=== PATIENT | male | born 1950 ===

== ENCOUNTER 2018-09-03 09:17 | Emergency (ER) | payer MEDICARE ==
[2018-09-03] MEDS ORDERED: Albuterol-Ipratrop 3 mg / 0.5 (3 ml) UD INH STA (09:51)
--- NOTE | 2018-09-03 11:10 | ED PDOC ---
History of Present Illness History of Present Illness: 67 year old male with a history of diabetes presents to the ED with a productive cough, tactile fever and sore throat since last night. Patient also complains of epigastric pain since he began coughing. He did not measure his temperature but states that he feels warm. Denies vomiting, any sick contacts, and chest pain. PMD: Dr. Andrei Carter HPI: Influenza Time Seen by Provider: 09/03/18 09:44 Chief Complaint: Cough, Cold, Congestion Chief Complaint (Provider): Cough, Cold, Congestion History Per: Patient Exam Limitations: no limitations Have you had recent travel within the past 21 days to any of: No Onset/Duration Of Symptoms: Days (x 2) Symptoms include: fever (feels warm), sore throat, cough Risk factors for flu complications: Yes: adult > 65 years Past Medical History Reviewed: Historical Data, Nursing Documentation, Vital Signs Vital Signs: Last Vital Signs Temp 97 F L 09/03/18 09:27 Pulse 58 L 09/03/18 09:27 Resp 20 09/03/18 09:27 BP 139/73 09/03/18 09:27 Pulse Ox 98 09/03/18 09:27 - Medical History PMH: Diabetes - Surgical History Surgical History: No Surg Hx - Family History Family History: States: Unknown Family Hx - Home Medications Home Medications: Ambulatory Orders Medication Instructions Recorded Azithromycin [Z-Cleveland] 250 mg PO DAILY #6 tab 09/03/18 - Allergies Allergies/Adverse Reactions: Allergies Allergy/AdvReac Type Severity Reaction Status Date / Time No Known Allergies Allergy Verified 09/03/18 09:26 Review of Systems ROS Statement: Except As Marked, All Systems Reviewed And Found Negative Constitutional: Positive for: Fever (feels warm). Negative for: Chills, Other (sick contacts) ENT: Positive for: Throat Pain Cardiovascular: Negative for: Chest Pain, Palpitations Respiratory: Positive for: Cough, Sputum Gastrointestinal: Negative for: Vomiting Physical Exam - Reviewed Nursing Documentation Reviewed: Yes Vital Signs Reviewed: Yes - Physical Exam Appears: Positive for: Non-toxic, No Acute Distress Head Exam: Positive for: ATRAUMATIC, NORMAL INSPECTION, NORMOCEPHALIC Skin: Positive for: Normal Color, Warm, Dry. Negative for: Rash Eye Exam: Positive for: EOMI, Normal appearance, PERRL Neck: Positive for: Normal, Painless ROM, Supple Cardiovascular/Chest: Positive for: Regular Rate, Rhythm. Negative for: Murmur Respiratory: Positive for: Crackles (crackles bilateral lungs, worse on left side) Gastrointestinal/Abdominal: Positive for: Normal Exam, Soft. Negative for: Tenderness Extremity: Positive for: Normal ROM (x 4). Negative for: Deformity Neurologic/Psych: Positive for: Alert, Oriented (x 3). Negative for: Motor/Sens ory Deficits Medical Decision Making Medical Decision Makin:50 MDM: workup for upper respiratory infection Albuterol treatment for shortness of breath Labs sent; CXR ordered Reassess patient 1310 Labs WNL. CXR unremarkable. Flu negative. Will give Azithromycin and pt to follow up with PMD. Return parameters discussed. --- Scribe Attestation: Documented by Diane Campoverde acting as a scribe for Kaila Martinez MD Provider Scribe Attestation: All medical record entries made by the Scribe were at my direction and personal ly dictated by me. I have reviewed the chart and agree that the record accurately reflects my personal performance of the history, physical exam, medical decision making, and the department course for this patient. I have also personally directed, reviewed, and agree with the discharge instructions and disposition. - Laboratory Results Result Diagrams: 09/03/18 11:35 09/03/18 11:35 - ECG O2 Sat by Pulse Oximetry: 98 Disposition - Clinical Impression Clinical Impression: Chronic cough - Disposition Disposition: Routine/Home Disposition Time: 13:12 Condition: IMPROVED Prescriptions: Azithromycin [Z-Cleveland] 250 mg PO DAILY #6 tab Forms: [employer] (Irish)
[2018-09-03] MEDS ORDERED: Albuterol-Ipratrop 3 mg / 0.5 (3 ml) UD ONE (11:39)
[2018-09-03 11:47] LABS: BASO % 0.6 % (0.0-2.0); EOS # 0.3 K/uL (0.0-0.7); EOS % 3.5 % (0.0-4.0); HEMOGLOBIN 13.6 g/dL (12.0-18.0); LYMPH % 14.1 % (20.0-40.0); MEAN CELL VOLUME 87.5 fl (80.0-94.0); MEAN CORPUSCULAR HEMOGLOBIN 28.7 pg (27.0-31.0); MEAN CORPUSCULAR HGB CONC 32.8 g/dL (33.0-37.0); MEAN PLATELET VOLUME 8.2 fl (7.2-11.7); MONO # 0.6 K/uL (0.0-0.8); MONO % 7.8 % (0.0-10.0); NEUT # 5.3 K/uL (1.8-7.0); NRBC % 0.1 % (0.0-0.0); RBC 4.76 Mil/uL (4.40-5.90); RED CELL DISTRIBUTION WIDTH 14.1 % (11.5-14.5); WHITE BLOOD COUNT 7.2 K/uL (4.8-10.8)
[2018-09-03 11:55] LABS: BLOOD UREA NITROGEN 15 mg/dl (9-20); GFR NON-AFRICAN AMERICAN > 60
--- NOTE | 2018-09-03 13:11 | RAD ---
Date of service: 09/03/2018 HISTORY: cough and fever COMPARISON: No prior. TECHNIQUE: Chest PA and lateral FINDINGS: LUNGS: No active pulmonary disease. PLEURA: No significant pleural effusion identified. No pneumothorax apparent. CARDIOVASCULAR: Atherosclerotic calcifications identified primarily aortic arch. Normal cardiac size. No pulmonary vascular congestion. OSSEOUS STRUCTURES: No significant abnormalities. VISUALIZED UPPER ABDOMEN: Normal. OTHER FINDINGS: None. IMPRESSION: No active disease.
[2018-09-03 13:43] VITALS: BP 128/72; PULSE 60; RESP 16; TEMP 97.9; O2SAT 99
== END 2018-09-03 13:45 | disposition home or self-care (01) ==
LOC: H.ER 09:17
DX: R05 Cough (principal); E11.9 Type 2 diabetes mellitus without complications

== ENCOUNTER 2018-12-05 09:21 | Emergency (ER) | payer MEDICARE ==
[2018-12-05 09:25] VITALS: PULSE 100; O2SAT 97
[2018-12-05 09:26] VITALS: BMI 30.2
[2018-12-05] MEDS ORDERED: Albuterol-Ipratrop 3 mg / 0.5 (3 ml) UD IH STA (09:48)
[2018-12-05] MEDS ORDERED: Albuterol-Ipratrop 3 mg / 0.5 (3 ml) UD ONE (09:55)
--- NOTE | 2018-12-05 09:56 | ED PDOC ---
History of Present Illness History of Present Illness: 67 year old male with a past medical history diabetes who is presenting to the ED for evaluation of cough and congestion productive of green sputum ongoing for 3 days. Patient also complains of associated body aches and chest pain secondary to cough. He denies any shortness of breath, fevers, or chills. PMD: none provided HPI: Influenza Time Seen by Provider: 12/05/18 09:38 Chief Complaint: Cough, Cold, Congestion Chief Complaint (Provider): Cough, Cold, Congestion History Per: Patient Exam Limitations: no limitations Onset/Duration Of Symptoms: Days (x3) Symptoms include: bodyaches, cough, nasal congestion, chest pain. denies: fever, difficulty breathing Past Medical History Reviewed: Historical Data, Nursing Documentation, Vital Signs Vital Signs: Last Vital Signs Temp 97.7 F 12/05/18 09:25 Pulse 100 H 12/05/18 09:25 Resp 17 12/05/18 09:25 BP 127/73 12/05/18 09:25 Pulse Ox 97 12/05/18 09:25 - Medical History PMH: Diabetes, Hyperlipidemia - Surgical History Surgical History: No Surg Hx - Family History Family History: States: Unknown Family Hx - Social History Current smoker - smoking cessation education provided: No Alcohol: None Drugs: Denies - Home Medications Home Medications: Ambulatory Orders Medication Instructions Recorded Azithromycin [Z-Cleveland] 250 mg PO DAILY #6 tab 09/03/18 guaiFENesin/Codeine 10 ml PO Q6 3 Days udc 09/03/18 [Codeine/Guaifenesin 10 MG/5 Ml-100 MG/5 Ml 5] Albuterol HFA [Ventolin HFA 90 2 puff IH Q4H #1 puff 12/05/18 mcg/actuation (8 g)] Azithromycin [Zithromax] 250 mg PO DAILY #6 tab 12/05/18 - Allergies Allergies/Adverse Reactions: Allergies Allergy/AdvReac Type Severity Reaction Status Date / Time No Known Allergies Allergy Verified 09/03/18 09:26 Review of Systems ROS Statement: Except As Marked, All Systems Reviewed And Found Negative Constitutional: Negative for: Fever, Chills ENT: Positive for: Nose Congestion Cardiovascular: Positive for: Chest Pain Respiratory: Positive for: Cough, Sputum. Negative for: Shortness of Breath Physical Exam - Reviewed Nursing Documentation Reviewed: Yes Vital Signs Reviewed: Yes - Physical Exam Appears: Positive for: Non-toxic, No Acute Distress Head Exam: Positive for: ATRAUMATIC, NORMAL INSPECTION, NORMOCEPHALIC Skin: Positive for: Normal Color, Warm, DRY Eye Exam: Positive for: EOMI, Normal appearance, PERRL ENT: Positive for: Normal ENT Inspection Neck: Positive for: Normal, Painless ROM Cardiovascular/Chest: Positive for: Regular Rate, Rhythm. Negative for: Murmur Respiratory: Positive for: Rhonchi, Wheezing (mild expiratory ). Negative for: Respiratory Distress Gastrointestinal/Abdominal: Positive for: Normal Exam, Soft. Negative for: Tenderness Extremity: Positive for: Normal ROM. Negative for: Deformity, Swelling Neurological/Psych: Positive for: Awake, Alert, Normal Tone, Oriented. Negative for: Motor/Sensory Deficits Medical Decision Making Medical Decision Making: Time: 9:48 Plan: --Chest x-ray --Duoneb 3 ml INH --Peak Flow Pre/Post TX --Influenza A B Scribe Attestation: Documented by Maggie Kay, acting as a scribe for Red Lacey MD. Provider Scribe Attestation: All medical record entries made by the Scribe were at my direction and personally dictated by me. I have reviewed the chart and agree that the record accurately reflects my personal performance of the history, physical exam, medical decision making, and the department course for this patient. I have also personally directed, reviewed, and agree with the discharge instructions and disposition. - ECG O2 Sat by Pulse Oximetry: 97 (RA) Pulse Ox Interpretation: Normal - Progress Re-evaluation Time: 11:10 Condition: Improved Disposition - Clinical Impression Clinical Impression: Bronchitis - Patient ED Disposition Is Patient to be Admitted: No Counseled Patient/Family Regarding: Studies Performed, Diagnosis, Need For Followup, Rx Given - Disposition Referrals: [facility] [Outside] Disposition: Routine/Home Disposition Time: 11:11 Condition: FAIR Prescriptions: Albuterol HFA [Ventolin HFA 90 mcg/actuation (8 g)] 2 puff IH Q4H #1 puff Azithromycin [Zithromax] 250 mg PO DAILY #6 tab Instructions: Acute Bronchitis Forms: [facility] (Portuguese) Print Language: MOZAMBICAN
--- NOTE | 2018-12-05 11:19 | RAD ---
Date of service: 12/05/2018 HISTORY: cough COMPARISON: 09/03/2018 TECHNIQUE: Chest PA and lateral views FINDINGS: LUNGS: No interval consolidation. Clear lungs. Lung volumes lower limits of normal. PLEURA: No significant pleural effusion identified. No pneumothorax apparent. CARDIOVASCULAR: There is presence of aortic atherosclerotic calcification on x-ray. Heart size appears top-normal. No pulmonary vascular congestion. OSSEOUS STRUCTURES: Thoraco lumbar spondylosis. VISUALIZED UPPER ABDOMEN: Normal. OTHER FINDINGS: None. IMPRESSION: No interval acute cardiopulmonary pathology noted. Other findings as above.
[2018-12-05 11:24] VITALS: BP 124/70; RESP 16; TEMP 98
== END 2018-12-05 11:22 | disposition home or self-care (01) ==
LOC: H.ER 09:21
DX: J40 Bronchitis, not specified as acute or chronic (principal); E11.9 Type 2 diabetes mellitus without complications; E78.5 Hyperlipidemia, unspecified